=== PATIENT | female | born 1995 | race Caucasian/White ===

== ENCOUNTER 2021-12-26 12:38 | Emergency (ER) | payer OTHER, SELFPAY ==
--- NOTE | ~2021-12-26 | CT_ITS ---
EXAMINATION: CT angio head neck CLINICAL INFORMATION: Left-sided neck pain and left upper extremity weakness. COMPARISON: No relevant prior imaging. TECHNIQUE: Glass Bender images were obtained. A CT angiogram of the head and neck was performed in the arterial phase after the intravenous administration of 70 mL Omnipaque 350. Pre and delayed postcontrast images of the head were also obtained. MIP reconstructions were generated in multiple orientations at the acquisition workstation. Multiple three-dimensional surface rendered images and maximum intensity projection images were generated on a dedicated 3-D lab workstation. Arterial stenoses are measured in accordance with NASCET criteria or similar method if applicable. This CT examination was performed using dose optimization techniques as appropriate, including one or more of the following: Automated exposure control, iterative reconstruction, and adjustment of technique factors (mA and/or kVp) according to patient size (this includes techniques or standardized protocols for targeted exams where dose is matched to indication/reason for exam). Total exam dose-length product 2155 mGy-cm FINDINGS: Head: There is no acute intracranial hemorrhage. Postcontrast images reveal no abnormal intracranial mass or enhancement. No intracranial mass effect or midline shift. Lateral and third ventricles are normal. No hydrocephalus. Hale-white matter differentiation is preserved and there is no evidence of acute territorial infarct. The calvarium and skull base are intact. Mastoid air cells and middle ear cavities are well aerated. No active paranasal sinus disease. CT angiogram neck: The aortic arch apex is normal. Origins of the major aortic branches are widely patent. Common carotid arteries and carotid bifurcations are normal. No stenosis of the extracranial internal carotid arteries. The cervical vertebral arteries are widely patent. CT angiogram head: Intracranial internal carotid arteries are normal. The intradural vertebral artery segments and basilar artery are normal. Anterior, middle, and posterior cerebral artery complexes are normal. No intracranial large vessel occlusion. Other: Although suboptimally assessed on this examination due to inherent limitations of CT without intrathecal contrast there is a left central soft disc protrusion/extrusion at C4-C5 causing indentation of the thecal sac and mass effect on the left ventral surface of the cervical cord. Soft tissues of the neck are otherwise normal. Visualized lung apices are clear. CT/CT angio head neck IMPRESSION: There is a left central soft disc protrusion/extrusion at C4-C5 causing indentation of the thecal sac and mass effect on the left ventral surface of the cervical cord. A dedicated cervical spine MRI is recommended for better anatomic characterization of this finding. Otherwise normal CT angiogram of the head and neck. This critical result was discussed with Italo Parada at 6:21 PM on 12/26/2021 and it was ascertained that the content and urgency of the report was understood at the time of direct communication.
[2021-12-26 12:41] VITALS: BP 142/99; PULSE 98; RESP 20; TEMP 36.6; O2SAT 99; BMI 22.4
--- NOTE | 2021-12-26 14:45 | PC.NURSE ---
pt pacing at bedside. pt eating lunch, in no distress. pt moves arms brisk and = but cannot elevate l arm past shoulder but has = strong lead radiologic technologist.
[2021-12-26 15:10] VITALS: BP 125/77; PULSE 103; RESP 18; TEMP 36.8; O2SAT 100
[2021-12-26 15:31] LABS: MANUAL DIFF FLAG NO
[2021-12-26 15:33] LABS: Basophils Percent Auto 0.2 % (0-2); Eosinophils Percent Auto 0.4 % (0-4); Hematocrit 41.4 % (37.0-47.0); Hemoglobin 13.9 g/dl (12.0-16.0); Imm Gran Abs Auto 0.02 X10*3/uL (0.00-0.03); Imm Gran Pct Auto 0.4 % (0.0-0.4); Lymphocytes Absolute Auto 1.4 X10*3/uL (1.2-4.9); Mean Corpuscular HGB Conc 33.6 g/dl (31.0-35.0); Mean Corpuscular Hemoglobin 30.3 pg (27.0-33.0); Mean Corpuscular Volume 90.4 fL (80.0-98.0); Mean Platelet Volume 10.9 fL (9.4-12.3); Monocytes Absolute Auto 0.5 X10*3/uL (0.1-1.2); Monocytes Percent Auto 8.5 % (2-11); Neutrophils Absolute Auto 3.7 x10*3/uL (2.0-8.3); Neutrophils Percent Auto 65.5 % (45-73); Platelet Count 165 X10*3/uL (160-400); Red Blood Count 4.58 X10*6/uL (4.20-5.50); Red Cell Distribution Width 12.2 % (11.0-16.0); White Blood Count 5.7 X10*3/uL (4.8-10.8)
--- NOTE | 2021-12-26 15:36 | PC.NURSE ---
20g iv est r ac with sterile technique. pt is refusing pain medication at this time.
[2021-12-26 15:43] LABS: UPreg QC Valid YES; Urine Pregnancy NEGATIVE (NEGATIVE)
[2021-12-26 15:51] LABS: Anion Gap 16 (12-20); Blood Urea Nitrogen 9 mg/dL (9-16); Calcium 9.3 mg/dL (8.4-10.2); Carbon Dioxide 23 mmol/L (22-29); Chloride 105 mmol/L (96-108); Creatinine Clr Calc Pharmacy 107.5; Estimated Glomerular Filt Rate > 60; Glucose Random 86 mg/dL (60-115); Potassium 4.3 mmol/L (3.3-5.1); Sodium 140 mmol/L (135-145)
[2021-12-26] MEDS: iohexoL 350 MG/ML 100 ML INFUS..BTL IV (17:46)
[2021-12-26 18:17] VITALS: BP 118/80; PULSE 88; RESP 18; TEMP 37.1; O2SAT 99
--- NOTE | 2021-12-26 18:17 | PC.NURSE ---
1729- Attempted to medicate with Tylenol IV Tylenol unavailable. Pharmacy notified. Pharmacy reporting that only surgeons can order IV Tylenol Provider notified
--- NOTE | 2021-12-26 19:17 | ED_ITS ---
HPI - Back Pain/Injury General Chief Complaint: Back Pain/Injury Stated Complaint: back pain/weakness on L side Time Seen by Provider: 12/26/21 15:04 History of Present Illness HPI Narrative: Patient complains of left arm weakness as well as left-sided neck pain radiating to the fingers with some tingling but no loss of sensation This started several days ago after a chiropractic manipulation, she felt pain and tingling the next day and then 2 days ago on Wednesday she was not able to use her arm normally because it was week, no changes to bowel or bladder Related Data Allergies Allergy/AdvReac Type Severity Reaction Status Date / Time No Known Allergies Allergy Verified 12/26/21 15:05 Review of Systems Review of Systems: Positive for left-sided neck pain, tingling down the arm and weakness in moving the arm Negatives are no fever no chills no headache no blurred vision no loss of sensation no changes to bowel or bladder no chest pain no shortness of breath no abdominal pain no skin rash Yes all other systems are reviewed and are negative PMFSH Past Medical History Source: nursing notes reviewed Social History Social History Advance Directives: No Physical Exam Vital Signs: Vital Signs: Last Vital Signs Temp 98.8 F 12/26/21 18:17 Pulse 88 12/26/21 18:17 Resp 18 12/26/21 18:17 BP 118/80 12/26/21 18:17 Pulse Ox 99 12/26/21 18:17 O2 Del Method 12/26/21 18:17 BMI result Body Mass Index 22.4 General appearance is no acute distress Head is normocephalic atraumatic The neck has limited range of motion and tenderness along the left side of the neck The chest is clear to auscultation bilateral Chest wall nontender The abdomen is soft nontender The lower back is full range of motion and nontender The lower extremities have normal strength and range of motion The left arm had weakness on abduction and extension of the shoulder, she can only abduct to about 45 degrees 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 and symmetrical, sensation was intact and symmetrical Skin no rash Neuro gait and balance are normal, interaction both expression and comprehension were normal Course Course Course Narrative: Patient with new weakness in her left upper arm and shoulder as well as new paresthesias and left-sided neck pain was found to have a herniated disc at C4- C5 CTA did not show any vascular emergency, no dissection Case was discussed with neuro surgical physician technical services assistant at [facility] who advised patient should be transferred to the [facility] Emergency Room for neuro surgical evaluation, as well as MRI which could not be done at [place] The case was discussed with Dr. Morales of [facility] who accepted the patient and she will be driven there by a friend MDM - Back Pain/Injury Lab Data Attestation: I reviewed the patient's lab results. Result diagrams: 12/26/21 15:26 12/26/21 15:26 Labs: Lab Results 12/26/21 12/26/21 12/26/21 Range/Units 15:26 15:26 15:26 WBC 5.7 (4.8-10.8) X10*3/uL RBC 4.58 (4.20-5.50) X10*6/uL Hgb 13.9 (12.0-16.0) g/dl Hct 41.4 (37.0-47.0) % MCV 90.4 (80.0-98.0) fL MCH 30.3 (27.0-33.0) pg MCHC 33.6 (31.0-35.0) g/dl RDW 12.2 (11.0-16.0) % Plt Count 165 (160-400) X10*3/uL MPV 10.9 (9.4-12.3) fL Immature Gran % (Auto) 0.4 (0.0-0.4) % Neut % (Auto) 65.5 (45-73) % Lymph % (Auto) 25.0 (20-40) % Hardy % (Auto) 8.5 (2-11) % Eos % (Auto) 0.4 (0-4) % Baso % (Auto) 0.2 (0-2) % Lymph # (Auto) 1.4 (1.2-4.9) X10*3/uL Hardy # (Auto) 0.5 (0.1-1.2) X10*3/uL Eos # (Auto) 0.0 (0.0-0.4) X10*3/uL Baso # (Auto) 0.0 (0.0-0.2) X10*3/uL Abs Immat Gran (auto) 0.02 (0.00-0.03) X10*3/uL Absolute Neuts (auto) 3.7 (2.0-8.3) x10*3/uL Absolute Nucleated RBC 0.000 (0.0-0.012) X10*3/uL Nucleated RBC % (auto) 0.0 (0.0-0.2) /100WBC Sodium 140 (135-145) mmol/L Potassium 4.3 (3.3-5.1) mmol/L Chloride 105 (96-108) mmol/L Carbon Dioxide 23 (22-29) mmol/L Anion Gap 16 (12-20) BUN 9 (9-16) mg/dL Creatinine 0.65 (0.5-1.4) mg/dL Estim Creat Clear Calc 107.5 Estimated GFR > 60 Random Glucose 86 (60-115) mg/dL Calcium 9.3 (8.4-10.2) mg/dL Urine Test NEGATIVE (NEGATIVE) Discharge Plan Discharge Clinical Impression: Cervical disc herniation, Left arm weakness Patient Disposition: [facility] Transfer Details: Patient with left arm weakness and C4-C5 disc herniation for neuro surgical evaluation and MRI Additional Instructions: We spoke with neurosurgery physician technical services assistant Aarti who advised transfer to the emergency room at [facility] where they will get a neuro surgical consult and MRI I spoke with the emergency room doctor Andrew who accepted the transfer The reason for the transfer is because of the disc herniation that is pressing on nerves which is making her left arm week and this is urgent as sometimes the longer the nerve is pressed the more difficult it is to treat the weakness
[2021-12-26] MEDS: Acetaminophen 325 MG TABLET 975 MG PO (19:31)
[2021-12-26] MEDS: dexAMETHasone 2 MG TABLET 10 MG PO (19:31)
== END 2021-12-26 19:36 | disposition short-term general hospital (02) ==
PROVIDERS: Physician Assistant Medical; Emergency Provider Student in an Organized Health Care Education/Training Program; PCP Nurse Practitioner Family
DX: M50.221 Other cervical disc displacement at C4-C5 level (principal); R53.1 Weakness
CPT/HCPCS: 36415; 70496; 70498; 80048; 81025; 85025; 96374; 99284; 99285; J8540; Q9967